=== PATIENT | male | born 1995 | race Caucasian/White ===

== ENCOUNTER 2017-01-04 10:41 | Emergency (ER) | payer OTHER, SELFPAY ==
--- NOTE | 2017-01-04 11:58 | EDDOCDS ---
Physician Documentation [facility] Name: Colt Tellez Age: 21 yrs Sex: Male : 1995 Arrival Date: 01/04/2017 Time: 10:41 Bed TR8 Private MD: NO PRIMARY PHYSICIAN, . Disposition: 01/04/17 11:51 Discharged to Home/Self Care. 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 - Condition is Stable. - Discharge Instructions: Herpes Labialis. - Prescriptions for Ibuprofen 800 mg Oral Tablet - take 1 tablet by ORAL route every 8 hours As needed take with food; 30 tablet. Valtrex 1 g Oral Tablet - take 2 tablet by ORAL route every 12 hours for 1 day; 4 tablet. Bactrim DS 800- 160 mg Oral Tablet - take 2 tablet by ORAL route every 12 hours for 7 days; 28 tablet. - Medication Reconciliation, Referral List Call for Appointment, Local Pharmacy Hours form. - [facility] ; When: 1 - 2 days; Reason: Recheck today's complaints, Continuance of care. Follow up: Emergency Department; Reason: Worsening of conditions. - Problem is new. - Symptoms have improved. Historical: - Allergies: No known drug Allergies; - Home Meds: 1. Bactrim DS 800-160 mg Oral tab 1 tab every 12 hours 2. ibuprofen 200 mg oral tab 2 tabs as needed (Last dose: 01/04/2017 07:00) - PMHx: ADHD; Sciatica; - PSHx: Tonsillectomy; Adenoidectomy; - Social history: Smoking status: Patient states was never smoker of tobacco. No barriers to communication noted, The patient speaks fluent Albanian. - Family history: Not pertinent. - : The pt / caregiver states he / she is not on anticoagulants. Home medication list is obtained from the patient, [employer] import data. - Exposure Risk Screening:: None identified. Vital Signs: 01/04 10:43 BP 137 / 70; Pulse 80; Resp 16; Temp 97.2(O); Pulse Ox 100% on R/A; Weight 121.56 kg / lr2 267.99 lbs (R); Height 6 ft. 2 in. (187.96 cm) (R); Pain 0/10; 10:43 Body Mass Index 34.41 (121.56 kg, 187.96 cm) lr2 MDM: 11:38 Financial registration complete. mm15 11:40 Viral Culture - Most Extremities Ordered. EDMS 11:45 [facility] Payment Agreement was scanned into [employer] and attached to record. mm15 Signatures: Dispatcher MedHost EDMS Kerry Mcadams RN RN [facility] Essie Zamora RN RN srm Stefanie Naranjo, JIM PARubina ef1 Amanda Tineo mm15 The chart was reviewed and I authenticate all verbal orders and agree with the evaluation and treatment provided.Corrections: (The following items were deleted from the chart) 11:46 11:39 Misc. Nursing Order ordered. ef1 srm Attachments: 11:45 [facility] Payment Agreement mm15 MTDD
--- NOTE | 2017-01-04 11:58 | EDDOCDS ---
Nurse's Notes [facility] Name: Colt Tellez Age: 21 yrs Sex: Male : 1995 Arrival Date: 01/04/2017 Time: 10:41 Bed TR8 Private MD: NO PRIMARY PHYSICIAN, . Diagnosis: Herpesviral [herpes simplex] infections-Bottom lip and tip of tongue;Local infection of the skin and subcutaneous tissue, unspecified Presentation: 01/04 10:47 Presenting complaint: Patient states: he is here for a refill of his antibiotic - has kcs been on the meds for awhile - diagnosed with cellulitis by Timothy Ruvalcaba in [place] and was told he may have to be on the antibiotic for over a month - did get better but has noticed it is coming back. Infection is in his mouth. Adult Sepsis Screening: The patient does not have new or worsening altered mentation. Patient's respiratory rate is less than 22. Systolic blood pressure is greater than 100. Patient has a qSOFA score of 0- Negative Sepsis Screen. Suicide/Homicide risk assessment- the patient denies having any suicidal and/or homicidal ideations and does not present with any other emotional, behavioral or mental health complaints. Status: Patient is not a card services specialist or dependent. Transition of care: patient was not received from another setting of care. 10:47 Acuity: ARIELLE Level 5 kcs 10:47 Method Of Arrival: Walkin/Carried/Asstd kcs Triage Assessment: 10:50 General: Appears comfortable, well developed, well nourished, well groomed, Behavior is kcs cooperative, pleasant. Pain: Denies pain. HIV screening NA for this visit Offered previously. Neurological: Level of Consciousness is awake, alert. Respiratory: Airway is patent Respiratory effort is even, unlabored, Respiratory pattern is regular, symmetrical. Derm: Skin is intact, is healthy with good turgor, Skin is dry, Skin is normal. Historical: - Allergies: No known drug Allergies; - Home Meds: 1. Bactrim DS 800-160 mg Oral tab 1 tab every 12 hours 2. ibuprofen 200 mg oral tab 2 tabs as needed (Last dose: 01/04/2017 07:00) - PMHx: ADHD; Sciatica; - PSHx: Tonsillectomy; Adenoidectomy; - Social history: Smoking status: Patient states was never smoker of tobacco. No barriers to communication noted, The patient speaks fluent Angolan. - Family history: Not pertinent. - : The pt / caregiver states he / she is not on anticoagulants. Home medication list is obtained from the patient, [employer] import data. - Exposure Risk Screening:: None identified. Screenin:48 Screening information is obtained from the patient. Fall risk: No risks identified. srm Assistance ADL's: requires no assistance with activities of daily living. Abuse/DV Screen: The patient / caregiver reports he/she is: not in a situation that causes fear, pain or injury. Nutritional screening: No deficits noted. Advance Directives: There is no active DNR order. home support is adequate. Assessment: 11:48 General: Appears in no apparent distress, Behavior is appropriate for age, cooperative. srm EENT: No deficits noted. Derm: pimple like area to mid lower lip. no driange noted at this time. Vital Signs: 10:43 BP 137 / 70; Pulse 80; Resp 16; Temp 97.2(O); Pulse Ox 100% on R/A; Weight 121.56 kg lr2 (R); Height 6 ft. 2 in. (187.96 cm) (R); Pain 0/10; 10:43 Body Mass Index 34.41 (121.56 kg, 187.96 cm) lr2 Vitals: 10:43 Log In Time: January 04, 2017 at 10:41. lr2 ED Course: 10:42 Patient visited by Keisha Weber. lr2 10:42 Patient moved to Waiting lr2 10:45 NO PRIMARY PHYSICIAN, . is Private Physician. lr2 10:45 Patient moved to Pre RCE lr2 10:49 Triage Initiated kcs 10:56 Patient moved to Triage 3 kcs 10:58 Stefanie Naranjo PA-C is PHCP. ef1 10:58 Maria Del Carmen King MD is Attending Physician. ef1 11:08 Patient visited by Stefanie Naranjo PA-C. ef1 11:43 Patient visited by Stefanie Naranjo PA-C. ef1 11:45 [facility] Payment Agreement was scanned into [employer] and attached to record. mm15 11:46 Viral Culture - Most Extremities Sent. srm 11:48 The patient / caregiver is instructed regarding the plan of care and ED course. Patient srm has correct armband on for positive identification. 11:49 Patient visited by Essie Zamora, RN. srm 11:51 [facility] is Referral Physician. ef1 11:56 Patient moved to TR8 ms18 11:56 No IV's were initiated during this patient's visit. No procedures done that require srm assistance. Order Results: There are currently no results for this order. Outcome: 11:51 Discharge ordered by Provider. ef1 11:56 Discharge Assessment: Patient awake, alert and oriented x 3. No cognitive and/or srm functional deficits noted. Patient verbalized understanding of disposition instructions. patient administered narcotics - no. The following High Risk Discharge criteria are identified: None. Discharged to home ambulatory. Condition: good Condition: stable. Discharge instructions given to patient, Instructed on discharge instructions, follow up and referral plans. medication usage, Demonstrated understanding of instructions, medications, Pt was receptive of discharge instructions/ teaching. Prescriptions given X 3. No special radiology studies were completed. Property sent home with patient. 11:57 Patient left the ED. srm Signatures: Kerry Mcadams RN RN [facility] Essie Zamora, RN RN [facility] Stefanie Naranjo, PA-C PA-C ef1 Amanda Tineo mm15 Evette Carmona RN RN ms18 Keisha Weber lr2 Corrections: (The following items were deleted from the chart) 10:45 10:43 Pulse 80bpm; Resp 16bpm; Pulse Ox 100% RA; Temp 97.2F Oral; 121.56 kg Reported; lr2 Height 6 ft. 2 in. Reported; BMI: 34.4; Pain 0/10; lr2 MTDD
--- NOTE | 2017-01-06 12:58 | EDDOCDS ---
Physician Documentation [facility] Name: Colt Tellez Age: 21 yrs Sex: Male : 1995 Arrival Date: 01/04/2017 Time: 10:41 Bed TR8 Private MD: NO PRIMARY PHYSICIAN, . Disposition: 01/04/17 11:51 Discharged to Home/Self Care. 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 - Condition is Stable. - Discharge Instructions: Herpes Labialis. - Prescriptions for Ibuprofen 800 mg Oral Tablet - take 1 tablet by ORAL route every 8 hours As needed take with food; 30 tablet. Valtrex 1 g Oral Tablet - take 2 tablet by ORAL route every 12 hours for 1 day; 4 tablet. Bactrim DS 800- 160 mg Oral Tablet - take 2 tablet by ORAL route every 12 hours for 7 days; 28 tablet. - Medication Reconciliation, Referral List Call for Appointment, Local Pharmacy Hours form. - [facility] ; When: 1 - 2 days; Reason: Recheck today's complaints, Continuance of care. Follow up: Emergency Department; Reason: Worsening of conditions. - Problem is new. - Symptoms have improved. Historical: - Allergies: No known drug Allergies; - Home Meds: 1. Bactrim DS 800-160 mg Oral tab 1 tab every 12 hours 2. ibuprofen 200 mg oral tab 2 tabs as needed (Last dose: 01/04/2017 07:00) - PMHx: ADHD; Sciatica; - PSHx: Tonsillectomy; Adenoidectomy; - Social history: Smoking status: Patient states was never smoker of tobacco. No barriers to communication noted, The patient speaks fluent Faroese. - Family history: Not pertinent. - : The pt / caregiver states he / she is not on anticoagulants. Home medication list is obtained from the patient, [employer] import data. - Exposure Risk Screening:: None identified. Vital Signs: 01/04 10:43 BP 137 / 70; Pulse 80; Resp 16; Temp 97.2(O); Pulse Ox 100% on R/A; Weight 121.56 kg / lr2 267.99 lbs (R); Height 6 ft. 2 in. (187.96 cm) (R); Pain 0/10; 10:43 Body Mass Index 34.41 (121.56 kg, 187.96 cm) lr2 MDM: 11:38 Financial registration complete. mm15 11:40 Viral Culture - Most Extremities Ordered. EDMS 11:45 [facility] Payment Agreement was scanned into [employer] and attached to record. mm15 13:30 T-Sheet-- Draft Copy was scanned into [employer] and attached to record. gb Signatures: Dispatcher Med[employer] Kerry Gross RN RN [facility] Essie Zamora RN RN srm Edith Dobbins, Reg Reg gb Stefanie Naranjo, PA-C PA-C ef1 Amanda Tineo mm15 The chart was reviewed and I authenticate all verbal orders and agree with the evaluation and treatment provided.Corrections: (The following items were deleted from the chart) 11:46 11:39 Misc. Nursing Order ordered. ef1 srm Attachments: 11:45 [facility] Payment Agreement mm15 13:30 T-Sheet-- Draft Copy gb Chart Complete MTDD
--- NOTE | 2017-01-06 12:58 | EDDOCDS ---
Nurse's Notes [facility] Name: Colt Tellez Age: 21 yrs Sex: Male : 1995 Arrival Date: 01/04/2017 Time: 10:41 Bed TR8 Private MD: NO PRIMARY PHYSICIAN, . Diagnosis: Herpesviral [herpes simplex] infections-Bottom lip and tip of tongue;Local infection of the skin and subcutaneous tissue, unspecified Presentation: 01/04 10:47 Presenting complaint: Patient states: he is here for a refill of his antibiotic - has kcs been on the meds for awhile - diagnosed with cellulitis by Timothy Ruvalcaba in [place] and was told he may have to be on the antibiotic for over a month - did get better but has noticed it is coming back. Infection is in his mouth. Adult Sepsis Screening: The patient does not have new or worsening altered mentation. Patient's respiratory rate is less than 22. Systolic blood pressure is greater than 100. Patient has a qSOFA score of 0- Negative Sepsis Screen. Suicide/Homicide risk assessment- the patient denies having any suicidal and/or homicidal ideations and does not present with any other emotional, behavioral or mental health complaints. Status: Patient is not a fire sprinkler service technician or dependent. Transition of care: patient was not received from another setting of care. 10:47 Acuity: ARIELLE Level 5 kcs 10:47 Method Of Arrival: Walkin/Carried/Asstd kcs Triage Assessment: 10:50 General: Appears comfortable, well developed, well nourished, well groomed, Behavior is kcs cooperative, pleasant. Pain: Denies pain. HIV screening NA for this visit Offered previously. Neurological: Level of Consciousness is awake, alert. Respiratory: Airway is patent Respiratory effort is even, unlabored, Respiratory pattern is regular, symmetrical. Derm: Skin is intact, is healthy with good turgor, Skin is dry, Skin is normal. Historical: - Allergies: No known drug Allergies; - Home Meds: 1. Bactrim DS 800-160 mg Oral tab 1 tab every 12 hours 2. ibuprofen 200 mg oral tab 2 tabs as needed (Last dose: 01/04/2017 07:00) - PMHx: ADHD; Sciatica; - PSHx: Tonsillectomy; Adenoidectomy; - Social history: Smoking status: Patient states was never smoker of tobacco. No barriers to communication noted, The patient speaks fluent Panamanian. - Family history: Not pertinent. - : The pt / caregiver states he / she is not on anticoagulants. Home medication list is obtained from the patient, [employer] import data. - Exposure Risk Screening:: None identified. Screenin:48 Screening information is obtained from the patient. Fall risk: No risks identified. srm Assistance ADL's: requires no assistance with activities of daily living. Abuse/DV Screen: The patient / caregiver reports he/she is: not in a situation that causes fear, pain or injury. Nutritional screening: No deficits noted. Advance Directives: There is no active DNR order. home support is adequate. Assessment: 11:48 General: Appears in no apparent distress, Behavior is appropriate for age, cooperative. srm EENT: No deficits noted. Derm: pimple like area to mid lower lip. no driange noted at this time. Vital Signs: 10:43 BP 137 / 70; Pulse 80; Resp 16; Temp 97.2(O); Pulse Ox 100% on R/A; Weight 121.56 kg lr2 (R); Height 6 ft. 2 in. (187.96 cm) (R); Pain 0/10; 10:43 Body Mass Index 34.41 (121.56 kg, 187.96 cm) lr2 Vitals: 10:43 Log In Time: January 04, 2017 at 10:41. lr2 ED Course: 10:42 Patient visited by Keisha Weber. lr2 10:42 Patient moved to Waiting lr2 10:45 NO PRIMARY PHYSICIAN, . is Private Physician. lr2 10:45 Patient moved to Pre RCE lr2 10:49 Triage Initiated kcs 10:56 Patient moved to Triage 3 kcs 10:58 Stefanie Naranjo PA-C is PHCP. ef1 10:58 Maria Del Carmen King MD is Attending Physician. ef1 11:08 Patient visited by Stefanie Naranjo PA-C. ef1 11:43 Patient visited by Stefanie Naranjo PA-C. ef1 11:45 COUNTS INCLUDE 234 BEDS AT THE [facility] Payment Agreement was scanned into [employer] and attached to record. mm15 11:46 Viral Culture - Most Extremities Sent. srm 11:48 The patient / caregiver is instructed regarding the plan of care and ED course. Patient srm has correct armband on for positive identification. 11:49 Patient visited by Essie Zamora, RN. srm 11:51 [facility] is Referral Physician. ef1 11:56 Patient moved to TR8 ms18 11:56 No IV's were initiated during this patient's visit. No procedures done that require srm assistance. 13:30 T-Sheet-- Draft Copy was scanned into [employer] and attached to record. gb Order Results: There are currently no results for this order. Outcome: 11:51 Discharge ordered by Provider. ef1 11:56 Discharge Assessment: Patient awake, alert and oriented x 3. No cognitive and/or srm functional deficits noted. Patient verbalized understanding of disposition instructions. patient administered narcotics - no. The following High Risk Discharge criteria are identified: None. Discharged to home ambulatory. Condition: good Condition: stable. Discharge instructions given to patient, Instructed on discharge instructions, follow up and referral plans. medication usage, Demonstrated understanding of instructions, medications, Pt was receptive of discharge instructions/ teaching. Prescriptions given X 3. No special radiology studies were completed. Property sent home with patient. 11:57 Patient left the ED. srm Signatures: Kerry Mcadams, RN RN [facility] Essie Zamora, RN RN [facility] Edith Dobbins, Reg Reg Stefanie Samuels, PA-C PA-C ef1 Amanda Tineo mm15 Evette Carmona,CARMELLA RN ms18 Keisha Weber lr2 Corrections: (The following items were deleted from the chart) 10:45 10:43 Pulse 80bpm; Resp 16bpm; Pulse Ox 100% RA; Temp 97.2F Oral; 121.56 kg Reported; lr2 Height 6 ft. 2 in. Reported; BMI: 34.4; Pain 0/10; lr2 Chart Complete MTDD
--- NOTE | 2017-01-06 12:58 | EDDOCDS ---
Physician Documentation [facility] Name: Colt Tellez Age: 21 yrs Sex: Male : 1995 Arrival Date: 01/04/2017 Time: 10:41 Bed TR8 Private MD: NO PRIMARY PHYSICIAN, . Disposition: 01/04/17 11:51 Discharged to Home/Self Care. 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 - Condition is Stable. - Discharge Instructions: Herpes Labialis. - Prescriptions for Ibuprofen 800 mg Oral Tablet - take 1 tablet by ORAL route every 8 hours As needed take with food; 30 tablet. Valtrex 1 g Oral Tablet - take 2 tablet by ORAL route every 12 hours for 1 day; 4 tablet. Bactrim DS 800- 160 mg Oral Tablet - take 2 tablet by ORAL route every 12 hours for 7 days; 28 tablet. - Medication Reconciliation, Referral List Call for Appointment, Local Pharmacy Hours form. - [facility] ; When: 1 - 2 days; Reason: Recheck today's complaints, Continuance of care. Follow up: Emergency Department; Reason: Worsening of conditions. - Problem is new. - Symptoms have improved. Historical: - Allergies: No known drug Allergies; - Home Meds: 1. Bactrim DS 800-160 mg Oral tab 1 tab every 12 hours 2. ibuprofen 200 mg oral tab 2 tabs as needed (Last dose: 01/04/2017 07:00) - PMHx: ADHD; Sciatica; - PSHx: Tonsillectomy; Adenoidectomy; - Social history: Smoking status: Patient states was never smoker of tobacco. No barriers to communication noted, The patient speaks fluent Urdu. - Family history: Not pertinent. - : The pt / caregiver states he / she is not on anticoagulants. Home medication list is obtained from the patient, [employer] import data. - Exposure Risk Screening:: None identified. Vital Signs: 01/04 10:43 BP 137 / 70; Pulse 80; Resp 16; Temp 97.2(O); Pulse Ox 100% on R/A; Weight 121.56 kg / lr2 267.99 lbs (R); Height 6 ft. 2 in. (187.96 cm) (R); Pain 0/10; 10:43 Body Mass Index 34.41 (121.56 kg, 187.96 cm) lr2 MDM: 11:38 Financial registration complete. mm15 11:40 Viral Culture - Most Extremities Ordered. EDMS 11:45 [facility] Payment Agreement was scanned into [employer] and attached to record. mm15 13:30 T-Sheet-- Draft Copy was scanned into [employer] and attached to record. gb Signatures: Dispatcher Med[employer] Kerry Gross RN RN [facility] Essie Zamora RN RN srm Edith Dobbins, Reg Reg gb Stefanie Naranjo, PA-C PA-C ef1 Amanda Tineo mm15 The chart was reviewed and I authenticate all verbal orders and agree with the evaluation and treatment provided.Corrections: (The following items were deleted from the chart) 11:46 11:39 Misc. Nursing Order ordered. ef1 srm Attachments: 11:45 [facility] Payment Agreement mm15 13:30 T-Sheet-- Draft Copy gb Chart Complete MTDD
--- NOTE | 2017-01-13 10:24 | EDDOCDS ---
Physician Documentation [facility] Name: Colt Tellez Age: 21 yrs Sex: Male : 1995 Arrival Date: 01/04/2017 Time: 10:41 Bed TR8 Private MD: NO PRIMARY PHYSICIAN, . Disposition: 01/04/17 11:51 Discharged to Home/Self Care. 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 - Condition is Stable. - Discharge Instructions: Herpes Labialis. - Prescriptions for Ibuprofen 800 mg Oral Tablet - take 1 tablet by ORAL route every 8 hours As needed take with food; 30 tablet. Valtrex 1 g Oral Tablet - take 2 tablet by ORAL route every 12 hours for 1 day; 4 tablet. Bactrim DS 800- 160 mg Oral Tablet - take 2 tablet by ORAL route every 12 hours for 7 days; 28 tablet. - Medication Reconciliation, Referral List Call for Appointment, Local Pharmacy Hours form. - Follow up: [facility] ; When: 1 - 2 days; Reason: Recheck today's complaints, Continuance of care. Follow up: Emergency Department; Reason: Worsening of conditions. - Problem is new. - Symptoms have improved. Historical: - Allergies: No known drug Allergies; - Home Meds: 1. Bactrim DS 800-160 mg Oral tab 1 tab every 12 hours 2. ibuprofen 200 mg oral tab 2 tabs as needed (Last dose: 01/04/2017 07:00) - PMHx: ADHD; Sciatica; - PSHx: Tonsillectomy; Adenoidectomy; - Social history: Smoking status: Patient states was never smoker of tobacco. No barriers to communication noted, The patient speaks fluent Romansh. - Family history: Not pertinent. - : The pt / caregiver states he / she is not on anticoagulants. Home medication list is obtained from the patient, [employer] import data. - Exposure Risk Screening:: None identified. Vital Signs: 01/04 10:43 BP 137 / 70; Pulse 80; Resp 16; Temp 97.2(O); Pulse Ox 100% on R/A; Weight 121.56 kg / lr2 267.99 lbs (R); Height 6 ft. 2 in. (187.96 cm) (R); Pain 0/10; 10:43 Body Mass Index 34.41 (121.56 kg, 187.96 cm) lr2 MDM: 11:38 Financial registration complete. mm15 11:40 Viral Culture - Most Extremities Ordered. EDMS 11:45 [facility] Payment Agreement was scanned into [employer] and attached to record. mm15 13:30 T-Sheet-- Draft Copy was scanned into [employer] and attached to record. gb Signatures: Dispatcher [employer] Kerry Gross RN RN [facility] Essie Zamora RN RN srm Edith Dobbins, Reg Reg gb Stefanie Naranjo, PA-C PA-C ef1 Amanda Tineo mm15 The chart was reviewed and I authenticate all verbal orders and agree with the evaluation and treatment provided.Corrections: (The following items were deleted from the chart) 11:46 11:39 Misc. Nursing Order ordered. ef1 srm Attachments: 11:45 [facility] Payment Agreement mm15 13:30 T-Sheet-- Draft Copy gb MTDD
--- NOTE | 2017-01-13 10:24 | EDDOCDS ---
Nurse's Notes [facility] Name: Colt Tellez Age: 21 yrs Sex: Male : 1995 Arrival Date: 01/04/2017 Time: 10:41 Bed TR8 Private MD: NO PRIMARY PHYSICIAN, . 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 Infection is in his mouth. Adult Sepsis Screening: The patient does not have new or worsening altered mentation. Patient's respiratory rate is less than 22. Systolic blood pressure is greater than 100. Patient has a qSOFA score of 0- Negative Sepsis Screen. Suicide/Homicide risk assessment- the patient denies having any suicidal and/or homicidal ideations and does not present with any other emotional, behavioral or mental health complaints. Status: Patient is not a service car driver or dependent. Transition of care: patient was not received from another setting of care. 10:47 Acuity: ARIELLE Level 5 kcs 10:47 Method Of Arrival: Walkin/Carried/Asstd kcs Triage Assessment: 10:50 General: Appears comfortable, well developed, well nourished, well groomed, Behavior is kcs cooperative, pleasant. Pain: Denies pain. HIV screening NA for this visit Offered previously. Neurological: Level of Consciousness is awake, alert. Respiratory: Airway is patent Respiratory effort is even, unlabored, Respiratory pattern is regular, symmetrical. Derm: Skin is intact, is healthy with good turgor, Skin is dry, Skin is normal. Historical: - Allergies: No known drug Allergies; - Home Meds: 1. Bactrim DS 800-160 mg Oral tab 1 tab every 12 hours 2. ibuprofen 200 mg oral tab 2 tabs as needed (Last dose: 01/04/2017 07:00) - PMHx: ADHD; Sciatica; - PSHx: Tonsillectomy; Adenoidectomy; - Social history: Smoking status: Patient states was never smoker of tobacco. No barriers to communication noted, The patient speaks fluent Panamanian. - Family history: Not pertinent. - : The pt / caregiver states he / she is not on anticoagulants. Home medication list is obtained from the patient, [employer] import data. - Exposure Risk Screening:: None identified. Screenin:48 Screening information is obtained from the patient. Fall risk: No risks identified. srm Assistance ADL's: requires no assistance with activities of daily living. Abuse/DV Screen: The patient / caregiver reports he/she is: not in a situation that causes fear, pain or injury. Nutritional screening: No deficits noted. Advance Directives: There is no active DNR order. home support is adequate. Assessment: 11:48 General: Appears in no apparent distress, Behavior is appropriate for age, cooperative. srm EENT: No deficits noted. Derm: pimple like area to mid lower lip. no driange noted at this time. Vital Signs: 10:43 BP 137 / 70; Pulse 80; Resp 16; Temp 97.2(O); Pulse Ox 100% on R/A; Weight 121.56 kg lr2 (R); Height 6 ft. 2 in. (187.96 cm) (R); Pain 0/10; 10:43 Body Mass Index 34.41 (121.56 kg, 187.96 cm) lr2 Vitals: 10:43 Log In Time: January 04, 2017 at 10:41. lr2 ED Course: 10:42 Patient visited by Keisha Weber. lr2 10:42 Patient moved to Waiting lr2 10:45 NO PRIMARY PHYSICIAN, . is Private Physician. lr2 10:45 Patient moved to Pre RCE lr2 10:49 Triage Initiated kcs 10:56 Patient moved to Triage 3 kcs 10:58 Stefanie Naranjo PA-C is PHCP. ef1 10:58 Maria Del Carmen King MD is Attending Physician. ef1 11:08 Patient visited by Stefanie Naranjo PA-C. ef1 11:43 Patient visited by Stefanie Naranjo PA-C. ef1 11:45 [facility] Payment Agreement was scanned into [employer] and attached to record. mm15 11:46 Viral Culture - Most Extremities Sent. srm 11:48 The patient / caregiver is instructed regarding the plan of care and ED course. Patient srm has correct armband on for positive identification. 11:49 Patient visited by Essie Zamora, RN. [facility] 11:51 [facility] is Referral Physician. ef1 11:56 Patient moved to TR8 ms18 11:56 No IV's were initiated during this patient's visit. No procedures done that require srm assistance. 13:30 T-Sheet-- Draft Copy was scanned into [employer] and attached to record. gb Order Results: Lab Order: Viral Culture - Most Extremities; SPEC'M 01/04/17 11:47 Test: VIRAL CULTURE; Value: VIRAL CULTURE Positive for Herpes Simplex Virus Type 2; Abnormal: Abnormal; Status: F Test: VIRAL CULTURE; Value: Comments:; Status: F Test Note: ; Testing performed at reference lab . Report copy to follow on a separate form. 01/12/17 REF LAB#:[id number] Outcome: 11:51 Discharge ordered by Provider. ef1 11:56 Discharge Assessment: Patient awake, alert and oriented x 3. No cognitive and/or srm functional deficits noted. Patient verbalized understanding of disposition instructions. patient administered narcotics - no. The following High Risk Discharge criteria are identified: None. Discharged to home ambulatory. Condition: good Condition: stable. Discharge instructions given to patient, Instructed on discharge instructions, follow up and referral plans. medication usage, Demonstrated understanding of instructions, medications, Pt was receptive of discharge instructions/ teaching. Prescriptions given X 3. No special radiology studies were completed. Property sent home with patient. 11:57 Patient left the ED. [facility] Addendum: 01/13/2017 10:22 Narrative: Viral culture results reviewed with Dr. Meyer and she reports patient and kcs provider aware. Signatures: Kerry Mcadams RN RN kcs Essie Zamora, RN RN srm Edith Dobbins, Reg Reg gb Stefanie Naranjo, PADuniaC PA-C ef1 Amanda Tineo mm15 Evette Carmona RN RN ms18 Keisha Weber lr2 Corrections: (The following items were deleted from the chart) 01/04 10:45 10:43 Pulse 80bpm; Resp 16bpm; Pulse Ox 100% RA; Temp 97.2F Oral; 121.56 kg Reported; lr2 Height 6 ft. 2 in. Reported; BMI: 34.4; Pain 0/10; lr2 MTDD
--- NOTE | 2017-01-13 10:24 | EDDOCDS ---
Physician Documentation [facility] Name: Colt Tellez Age: 21 yrs Sex: Male : 1995 Arrival Date: 01/04/2017 Time: 10:41 Bed TR8 Private MD: NO PRIMARY PHYSICIAN, . Disposition: 01/04/17 11:51 Discharged to Home/Self Care. 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 - Condition is Stable. - Discharge Instructions: Herpes Labialis. - Prescriptions for Ibuprofen 800 mg Oral Tablet - take 1 tablet by ORAL route every 8 hours As needed take with food; 30 tablet. Valtrex 1 g Oral Tablet - take 2 tablet by ORAL route every 12 hours for 1 day; 4 tablet. Bactrim DS 800- 160 mg Oral Tablet - take 2 tablet by ORAL route every 12 hours for 7 days; 28 tablet. - Medication Reconciliation, Referral List Call for Appointment, Local Pharmacy Hours form. - [facility] ; When: 1 - 2 days; Reason: Recheck today's complaints, Continuance of care. Follow up: Emergency Department; Reason: Worsening of conditions. - Problem is new. - Symptoms have improved. Historical: - Allergies: No known drug Allergies; - Home Meds: 1. Bactrim DS 800-160 mg Oral tab 1 tab every 12 hours 2. ibuprofen 200 mg oral tab 2 tabs as needed (Last dose: 01/04/2017 07:00) - PMHx: ADHD; Sciatica; - PSHx: Tonsillectomy; Adenoidectomy; - Social history: Smoking status: Patient states was never smoker of tobacco. No barriers to communication noted, The patient speaks fluent Faroese. - Family history: Not pertinent. - : The pt / caregiver states he / she is not on anticoagulants. Home medication list is obtained from the patient, [employer] import data. - Exposure Risk Screening:: None identified. Vital Signs: 01/04 10:43 BP 137 / 70; Pulse 80; Resp 16; Temp 97.2(O); Pulse Ox 100% on R/A; Weight 121.56 kg / lr2 267.99 lbs (R); Height 6 ft. 2 in. (187.96 cm) (R); Pain 0/10; 10:43 Body Mass Index 34.41 (121.56 kg, 187.96 cm) lr2 MDM: 11:38 Financial registration complete. mm15 11:40 Viral Culture - Most Extremities Ordered. EDMS 11:45 [facility] Payment Agreement was scanned into [employer] and attached to record. mm15 13:30 T-Sheet-- Draft Copy was scanned into [employer] and attached to record. gb Signatures: Dispatcher [employer] Kerry Gross RN RN [facility] Essie Zamora RN RN srm Edith Dobbins, Reg Reg gb Stefanie Naranjo, PA-C PA-C ef1 Amanda Tineo mm15 The chart was reviewed and I authenticate all verbal orders and agree with the evaluation and treatment provided.Corrections: (The following items were deleted from the chart) 11:46 11:39 Misc. Nursing Order ordered. ef1 srm Attachments: 11:45 [facility] Payment Agreement mm15 13:30 T-Sheet-- Draft Copy gb MTDD
--- NOTE | 2017-01-13 10:26 | EDDOCDS ---
Physician Documentation [facility] Name: Colt Tellez Age: 21 yrs Sex: Male : 1995 Arrival Date: 01/04/2017 Time: 10:41 Bed TR8 Private MD: NO PRIMARY PHYSICIAN, . Disposition: 01/04/17 11:51 Discharged to Home/Self Care. 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 - Condition is Stable. - Discharge Instructions: Herpes Labialis. - Prescriptions for Ibuprofen 800 mg Oral Tablet - take 1 tablet by ORAL route every 8 hours As needed take with food; 30 tablet. Valtrex 1 g Oral Tablet - take 2 tablet by ORAL route every 12 hours for 1 day; 4 tablet. Bactrim DS 800- 160 mg Oral Tablet - take 2 tablet by ORAL route every 12 hours for 7 days; 28 tablet. - Medication Reconciliation, Referral List Call for Appointment, Local Pharmacy Hours form. - [facility] ; When: 1 - 2 days; Reason: Recheck today's complaints, Continuance of care. Follow up: Emergency Department; Reason: Worsening of conditions. - Problem is new. - Symptoms have improved. Historical: - Allergies: No known drug Allergies; - Home Meds: 1. Bactrim DS 800-160 mg Oral tab 1 tab every 12 hours 2. ibuprofen 200 mg oral tab 2 tabs as needed (Last dose: 01/04/2017 07:00) - PMHx: ADHD; Sciatica; - PSHx: Tonsillectomy; Adenoidectomy; - Social history: Smoking status: Patient states was never smoker of tobacco. No barriers to communication noted, The patient speaks fluent Indonesian. - Family history: Not pertinent. - : The pt / caregiver states he / she is not on anticoagulants. Home medication list is obtained from the patient, [employer] import data. - Exposure Risk Screening:: None identified. Vital Signs: 01/04 10:43 BP 137 / 70; Pulse 80; Resp 16; Temp 97.2(O); Pulse Ox 100% on R/A; Weight 121.56 kg / lr2 267.99 lbs (R); Height 6 ft. 2 in. (187.96 cm) (R); Pain 0/10; 10:43 Body Mass Index 34.41 (121.56 kg, 187.96 cm) lr2 MDM: 11:38 Financial registration complete. mm15 11:40 Viral Culture - Most Extremities Ordered. EDMS 11:45 [facility] Payment Agreement was scanned into [employer] and attached to record. mm15 13:30 T-Sheet-- Draft Copy was scanned into [employer] and attached to record. gb Signatures: Dispatcher [employer] Kerry Gross RN RN [facility] Essie Zamora RN RN srm dEith Dobbins, Reg Reg gb Stefanie Naranjo, PA-C PA-C ef1 Amanda Tineo mm15 The chart was reviewed and I authenticate all verbal orders and agree with the evaluation and treatment provided.Corrections: (The following items were deleted from the chart) 11:46 11:39 Misc. Nursing Order ordered. ef1 srm Attachments: 11:45 [facility] Payment Agreement mm15 13:30 T-Sheet-- Draft Copy gb Chart Complete MTDD
--- NOTE | 2017-01-13 10:26 | EDDOCDS ---
Nurse's Notes [facility] Name: Colt Tellez Age: 21 yrs Sex: Male : 1995 Arrival Date: 01/04/2017 Time: 10:41 Bed TR8 Private MD: NO PRIMARY PHYSICIAN, . Diagnosis: Herpesviral [herpes simplex] infections-Bottom lip and tip of tongue;Local infection of the skin and subcutaneous tissue, unspecified Presentation: 01/04 10:47 Presenting complaint: Patient states: he is here for a refill of his antibiotic - has kcs been on the meds for awhile - diagnosed with cellulitis by Timothy Ruvalcaba in [place] and was told he may have to be on the antibiotic for over a month - did get better but has noticed it is coming back. Infection is in his mouth. Adult Sepsis Screening: The patient does not have new or worsening altered mentation. Patient's respiratory rate is less than 22. Systolic blood pressure is greater than 100. Patient has a qSOFA score of 0- Negative Sepsis Screen. Suicide/Homicide risk assessment- the patient denies having any suicidal and/or homicidal ideations and does not present with any other emotional, behavioral or mental health complaints. 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 Transition of care: patient was not received from another setting of care. 10:47 Acuity: ARIELLE Level 5 kcs 10:47 Method Of Arrival: Walkin/Carried/Asstd kcs Triage Assessment: 10:50 General: Appears comfortable, well developed, well nourished, well groomed, Behavior is kcs cooperative, pleasant. Pain: Denies pain. HIV screening NA for this visit Offered previously. Neurological: Level of Consciousness is awake, alert. Respiratory: Airway is patent Respiratory effort is even, unlabored, Respiratory pattern is regular, symmetrical. Derm: Skin is intact, is healthy with good turgor, Skin is dry, Skin is normal. Historical: - Allergies: No known drug Allergies; - Home Meds: 1. Bactrim DS 800-160 mg Oral tab 1 tab every 12 hours 2. ibuprofen 200 mg oral tab 2 tabs as needed (Last dose: 01/04/2017 07:00) - PMHx: ADHD; Sciatica; - PSHx: Tonsillectomy; Adenoidectomy; - Social history: Smoking status: Patient states was never smoker of tobacco. No barriers to communication noted, The patient speaks fluent Icelandic. - Family history: Not pertinent. - : The pt / caregiver states he / she is not on anticoagulants. Home medication list is obtained from the patient, [employer] import data. - Exposure Risk Screening:: None identified. Screenin:48 Screening information is obtained from the patient. Fall risk: No risks identified. srm Assistance ADL's: requires no assistance with activities of daily living. Abuse/DV Screen: The patient / caregiver reports he/she is: not in a situation that causes fear, pain or injury. Nutritional screening: No deficits noted. Advance Directives: There is no active DNR order. home support is adequate. Assessment: 11:48 General: Appears in no apparent distress, Behavior is appropriate for age, cooperative. srm EENT: No deficits noted. Derm: pimple like area to mid lower lip. no driange noted at this time. Vital Signs: 10:43 BP 137 / 70; Pulse 80; Resp 16; Temp 97.2(O); Pulse Ox 100% on R/A; Weight 121.56 kg lr2 (R); Height 6 ft. 2 in. (187.96 cm) (R); Pain 0/10; 10:43 Body Mass Index 34.41 (121.56 kg, 187.96 cm) lr2 Vitals: 10:43 Log In Time: January 04, 2017 at 10:41. lr2 ED Course: 10:42 Patient visited by Keisha Weber. lr2 10:42 Patient moved to Waiting lr2 10:45 NO PRIMARY PHYSICIAN, . is Private Physician. lr2 10:45 Patient moved to Pre RCE lr2 10:49 Triage Initiated kcs 10:56 Patient moved to Triage 3 kcs 10:58 Stefanie Naranjo PA-C is PHCP. ef1 10:58 Maria Del Carmen King MD is Attending Physician. ef1 11:08 Patient visited by Stefanie Naranjo PA-C. ef1 11:43 Patient visited by Stefanie Naranjo PA-C. ef1 11:45 [facility] Payment Agreement was scanned into [email or web address] and attached to record. mm15 11:46 Viral Culture - Most Extremities Sent. srm 11:48 The patient / caregiver is instructed regarding the plan of care and ED course. Patient srm has correct armband on for positive identification. 11:49 Patient visited by Essie Zamora, RN. [facility] 11:51 [facility] is Referral Physician. ef1 11:56 Patient moved to TR8 ms18 11:56 No IV's were initiated during this patient's visit. No procedures done that require srm assistance. 13:30 T-Sheet-- Draft Copy was scanned into [email or web address] and attached to record. gb Order Results: Lab Order: Viral Culture - Most Extremities; SPEC'M 01/04/17 11:47 Test: VIRAL CULTURE; Value: VIRAL CULTURE Positive for Herpes Simplex Virus Type 2; Abnormal: Abnormal; Status: F Test: VIRAL CULTURE; Value: Comments:; Status: F Test Note: ; Testing performed at reference lab . Report copy to follow on a separate form. 01/12/17 REF LAB#:[id number] Outcome: 11:51 Discharge ordered by Provider. ef1 11:56 Discharge Assessment: Patient awake, alert and oriented x 3. No cognitive and/or srm functional deficits noted. Patient verbalized understanding of disposition instructions. patient administered narcotics - no. The following High Risk Discharge criteria are identified: None. Discharged to home ambulatory. Condition: good Condition: stable. Discharge instructions given to patient, Instructed on discharge instructions, follow up and referral plans. medication usage, Demonstrated understanding of instructions, medications, Pt was receptive of discharge instructions/ teaching. Prescriptions given X 3. No special radiology studies were completed. Property sent home with patient. 11:57 Patient left the ED. [facility] Addendum: 01/13/2017 10:22 Narrative: Viral culture results reviewed with Dr. Meyer and she reports patient and kcs provider aware. Signatures: Kerry Mcadams RN RN kcs Essie Zamora, RN RN srm Edith Dobbins, Reg Reg gb Stefanie Naranjo, PADuniaC PA-C ef1 Amanda Tineo mm15 Evette Carmona RN RN ms18 Keisha Weber lr2 Corrections: (The following items were deleted from the chart) 01/04 10:45 10:43 Pulse 80bpm; Resp 16bpm; Pulse Ox 100% RA; Temp 97.2F Oral; 121.56 kg Reported; lr2 Height 6 ft. 2 in. Reported; BMI: 34.4; Pain 0/10; lr2 Chart Complete MTDD
--- NOTE | 2017-01-13 10:26 | EDDOCDS ---
Physician Documentation [facility] Name: Colt Tellez Age: 21 yrs Sex: Male : 1995 Arrival Date: 01/04/2017 Time: 10:41 Bed TR8 Private MD: NO PRIMARY PHYSICIAN, . Disposition: 01/04/17 11:51 Discharged to Home/Self Care. 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 - Condition is Stable. - Discharge Instructions: Herpes Labialis. - Prescriptions for Ibuprofen 800 mg Oral Tablet - take 1 tablet by ORAL route every 8 hours As needed take with food; 30 tablet. Valtrex 1 g Oral Tablet - take 2 tablet by ORAL route every 12 hours for 1 day; 4 tablet. Bactrim DS 800- 160 mg Oral Tablet - take 2 tablet by ORAL route every 12 hours for 7 days; 28 tablet. - Medication Reconciliation, Referral List Call for Appointment, Local Pharmacy Hours form. - [facility] ; When: 1 - 2 days; Reason: Recheck today's complaints, Continuance of care. Follow up: Emergency Department; Reason: Worsening of conditions. - Problem is new. - Symptoms have improved. Historical: - Allergies: No known drug Allergies; - Home Meds: 1. Bactrim DS 800-160 mg Oral tab 1 tab every 12 hours 2. ibuprofen 200 mg oral tab 2 tabs as needed (Last dose: 01/04/2017 07:00) - PMHx: ADHD; Sciatica; - PSHx: Tonsillectomy; Adenoidectomy; - Social history: Smoking status: Patient states was never smoker of tobacco. No barriers to communication noted, The patient speaks fluent Tajik. - Family history: Not pertinent. - : The pt / caregiver states he / she is not on anticoagulants. Home medication list is obtained from the patient, [employer] import data. - Exposure Risk Screening:: None identified. Vital Signs: 01/04 10:43 BP 137 / 70; Pulse 80; Resp 16; Temp 97.2(O); Pulse Ox 100% on R/A; Weight 121.56 kg / lr2 267.99 lbs (R); Height 6 ft. 2 in. (187.96 cm) (R); Pain 0/10; 10:43 Body Mass Index 34.41 (121.56 kg, 187.96 cm) lr2 MDM: 11:38 Financial registration complete. mm15 11:40 Viral Culture - Most Extremities Ordered. EDMS 11:45 [facility] Payment Agreement was scanned into [id number] and attached to record. mm15 13:30 T-Sheet-- Draft Copy was scanned into [email or web address] and attached to record. gb Signatures: Dispatcher [employer] Kerry Gross RN RN [facility] Essie Zamora RN RN srm Edith Dobbins, Reg Reg gb Stefanie Naranjo, PA-C PA-C ef1 Amanda Tineo mm15 The chart was reviewed and I authenticate all verbal orders and agree with the evaluation and treatment provided.Corrections: (The following items were deleted from the chart) 11:46 11:39 Misc. Nursing Order ordered. ef1 srm Attachments: 11:45 [facility] Payment Agreement mm15 13:30 T-Sheet-- Draft Copy gb Chart Complete MTDD
--- NOTE | 2017-01-13 10:27 | EDDOCDS ---
Nurse's Notes [facility] Name: Colt Tellez Age: 21 yrs Sex: Male : 1995 Arrival Date: 01/04/2017 Time: 10:41 Bed TR8 Private MD: NO PRIMARY PHYSICIAN, . 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 Infection is in his mouth. Adult Sepsis Screening: The patient does not have new or worsening altered mentation. Patient's respiratory rate is less than 22. Systolic blood pressure is greater than 100. Patient has a qSOFA score of 0- Negative Sepsis Screen. Suicide/Homicide risk assessment- the patient denies having any suicidal and/or homicidal ideations and does not present with any other emotional, behavioral or mental health complaints. 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 Transition of care: patient was not received from another setting of care. 10:47 Acuity: ARIELLE Level 5 kcs 10:47 Method Of Arrival: Walkin/Carried/Asstd kcs Triage Assessment: 10:50 General: Appears comfortable, well developed, well nourished, well groomed, Behavior is kcs cooperative, pleasant. Pain: Denies pain. HIV screening NA for this visit Offered previously. Neurological: Level of Consciousness is awake, alert. Respiratory: Airway is patent Respiratory effort is even, unlabored, Respiratory pattern is regular, symmetrical. Derm: Skin is intact, is healthy with good turgor, Skin is dry, Skin is normal. Historical: - Allergies: No known drug Allergies; - Home Meds: 1. Bactrim DS 800-160 mg Oral tab 1 tab every 12 hours 2. ibuprofen 200 mg oral tab 2 tabs as needed (Last dose: 01/04/2017 07:00) - PMHx: ADHD; Sciatica; - PSHx: Tonsillectomy; Adenoidectomy; - Social history: Smoking status: Patient states was never smoker of tobacco. No barriers to communication noted, The patient speaks fluent Welsh. - Family history: Not pertinent. - : The pt / caregiver states he / she is not on anticoagulants. Home medication list is obtained from the patient, [employer] import data. - Exposure Risk Screening:: None identified. Screenin:48 Screening information is obtained from the patient. Fall risk: No risks identified. srm Assistance ADL's: requires no assistance with activities of daily living. Abuse/DV Screen: The patient / caregiver reports he/she is: not in a situation that causes fear, pain or injury. Nutritional screening: No deficits noted. Advance Directives: There is no active DNR order. home support is adequate. Assessment: 11:48 General: Appears in no apparent distress, Behavior is appropriate for age, cooperative. srm EENT: No deficits noted. Derm: pimple like area to mid lower lip. no driange noted at this time. Vital Signs: 10:43 BP 137 / 70; Pulse 80; Resp 16; Temp 97.2(O); Pulse Ox 100% on R/A; Weight 121.56 kg lr2 (R); Height 6 ft. 2 in. (187.96 cm) (R); Pain 0/10; 10:43 Body Mass Index 34.41 (121.56 kg, 187.96 cm) lr2 Vitals: 10:43 Log In Time: January 04, 2017 at 10:41. lr2 ED Course: 10:42 Patient visited by Keisha Weber. lr2 10:42 Patient moved to Waiting lr2 10:45 NO PRIMARY PHYSICIAN, . is Private Physician. lr2 10:45 Patient moved to Pre RCE lr2 10:49 Triage Initiated kcs 10:56 Patient moved to Triage 3 kcs 10:58 Stefanie Naranjo PA-C is PHCP. ef1 10:58 Maria Del Carmen King MD is Attending Physician. ef1 11:08 Patient visited by Stefanie Naranjo PA-C. ef1 11:43 Patient visited by Stefanie Naranjo PA-C. ef1 11:45 [facility] Payment Agreement was scanned into [employer] and attached to record. mm15 11:46 Viral Culture - Most Extremities Sent. srm 11:48 The patient / caregiver is instructed regarding the plan of care and ED course. Patient srm has correct armband on for positive identification. 11:49 Patient visited by Essie Zamora, RN. [facility] 11:51 [facility] is Referral Physician. ef1 11:56 Patient moved to TR8 ms18 11:56 No IV's were initiated during this patient's visit. No procedures done that require srm assistance. 13:30 T-Sheet-- Draft Copy was scanned into [employer]HAPP and attached to record. gb Order Results: Lab Order: Viral Culture - Most Extremities; SPEC'M 01/04/17 11:47 Test: VIRAL CULTURE; Value: VIRAL CULTURE Positive for Herpes Simplex Virus Type 2; Abnormal: Abnormal; Status: F Test: VIRAL CULTURE; Value: Comments:; Status: F Test Note: ; Testing performed at reference lab . Report copy to follow on a separate form. 01/12/17 REF LAB#:[id number] Outcome: 11:51 Discharge ordered by Provider. ef1 11:56 Discharge Assessment: Patient awake, alert and oriented x 3. No cognitive and/or srm functional deficits noted. Patient verbalized understanding of disposition instructions. patient administered narcotics - no. The following High Risk Discharge criteria are identified: None. Discharged to home ambulatory. Condition: good Condition: stable. Discharge instructions given to patient, Instructed on discharge instructions, follow up and referral plans. medication usage, Demonstrated understanding of instructions, medications, Pt was receptive of discharge instructions/ teaching. Prescriptions given X 3. No special radiology studies were completed. Property sent home with patient. 11:57 Patient left the ED. [facility] Addendum: 01/13/2017 10:22 Narrative: Viral culture results reviewed with Dr. Myeer and she reports patient and kcs provider aware. Signatures: Kerry Mcadams RN RN kcs Essie Zamora, RN RN srm Edith Dobbins, Reg Reg gb Stefanie Naranjo, PADuniaC PA-C ef1 Amanda Tineo mm15 Evette Carmona RN RN ms18 Keisha Weber lr2 Corrections: (The following items were deleted from the chart) 01/04 10:45 10:43 Pulse 80bpm; Resp 16bpm; Pulse Ox 100% RA; Temp 97.2F Oral; 121.56 kg Reported; lr2 Height 6 ft. 2 in. Reported; BMI: 34.4; Pain 0/10; lr2 Chart Complete MTDD
--- NOTE | 2017-01-13 10:27 | EDDOCDS ---
Physician Documentation [facility] Name: Colt Tellez Age: 21 yrs Sex: Male : 1995 Arrival Date: 01/04/2017 Time: 10:41 Bed TR8 Private MD: NO PRIMARY PHYSICIAN, . Disposition: 01/04/17 11:51 Discharged to Home/Self Care. 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 - Condition is Stable. - Discharge Instructions: Herpes Labialis. - Prescriptions for Ibuprofen 800 mg Oral Tablet - take 1 tablet by ORAL route every 8 hours As needed take with food; 30 tablet. Valtrex 1 g Oral Tablet - take 2 tablet by ORAL route every 12 hours for 1 day; 4 tablet. Bactrim DS 800- 160 mg Oral Tablet - take 2 tablet by ORAL route every 12 hours for 7 days; 28 tablet. - Medication Reconciliation, Referral List Call for Appointment, Local Pharmacy Hours form. - [facility] ; When: 1 - 2 days; Reason: Recheck today's complaints, Continuance of care. Follow up: Emergency Department; Reason: Worsening of conditions. - Problem is new. - Symptoms have improved. Historical: - Allergies: No known drug Allergies; - Home Meds: 1. Bactrim DS 800-160 mg Oral tab 1 tab every 12 hours 2. ibuprofen 200 mg oral tab 2 tabs as needed (Last dose: 01/04/2017 07:00) - PMHx: ADHD; Sciatica; - PSHx: Tonsillectomy; Adenoidectomy; - Social history: Smoking status: Patient states was never smoker of tobacco. No barriers to communication noted, The patient speaks fluent Frisian. - Family history: Not pertinent. - : The pt / caregiver states he / she is not on anticoagulants. Home medication list is obtained from the patient, [employer] import data. - Exposure Risk Screening:: None identified. Vital Signs: 01/04 10:43 BP 137 / 70; Pulse 80; Resp 16; Temp 97.2(O); Pulse Ox 100% on R/A; Weight 121.56 kg / lr2 267.99 lbs (R); Height 6 ft. 2 in. (187.96 cm) (R); Pain 0/10; 10:43 Body Mass Index 34.41 (121.56 kg, 187.96 cm) lr2 MDM: 11:38 Financial registration complete. mm15 11:40 Viral Culture - Most Extremities Ordered. EDMS 11:45 [facility] Payment Agreement was scanned into [employer] and attached to record. mm15 13:30 T-Sheet-- Draft Copy was scanned into [employer] and attached to record. gb Signatures: Dispatcher [employer] Kerry Gross RN RN [facility] Essie Zamora RN RN srm Edith Dobbins, Reg Reg gb Stefanie Naranjo, PA-C PA-C ef1 Amanda Tineo mm15 The chart was reviewed and I authenticate all verbal orders and agree with the evaluation and treatment provided.Corrections: (The following items were deleted from the chart) 11:46 11:39 Misc. Nursing Order ordered. ef1 srm Attachments: 11:45 [facility] Payment Agreement mm15 13:30 T-Sheet-- Draft Copy gb Chart Complete MTDD
--- NOTE | 2017-01-13 10:28 | EDDOCDS ---
Physician Documentation [facility] Name: Colt Tellez Age: 21 yrs Sex: Male : 1995 Arrival Date: 01/04/2017 Time: 10:41 Bed TR8 Private MD: NO PRIMARY PHYSICIAN, . Disposition: 01/04/17 11:51 Discharged to Home/Self Care. 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 - Condition is Stable. - Discharge Instructions: Herpes Labialis. - Prescriptions for Ibuprofen 800 mg Oral Tablet - take 1 tablet by ORAL route every 8 hours As needed take with food; 30 tablet. Valtrex 1 g Oral Tablet - take 2 tablet by ORAL route every 12 hours for 1 day; 4 tablet. Bactrim DS 800- 160 mg Oral Tablet - take 2 tablet by ORAL route every 12 hours for 7 days; 28 tablet. - Medication Reconciliation, Referral List Call for Appointment, Local Pharmacy Hours form. - [facility] ; When: 1 - 2 days; Reason: Recheck today's complaints, Continuance of care. Follow up: Emergency Department; Reason: Worsening of conditions. - Problem is new. - Symptoms have improved. Historical: - Allergies: No known drug Allergies; - Home Meds: 1. Bactrim DS 800-160 mg Oral tab 1 tab every 12 hours 2. ibuprofen 200 mg oral tab 2 tabs as needed (Last dose: 01/04/2017 07:00) - PMHx: ADHD; Sciatica; - PSHx: Tonsillectomy; Adenoidectomy; - Social history: Smoking status: Patient states was never smoker of tobacco. No barriers to communication noted, The patient speaks fluent Yi. - Family history: Not pertinent. - : The pt / caregiver states he / she is not on anticoagulants. Home medication list is obtained from the patient, [employer] import data. - Exposure Risk Screening:: None identified. Vital Signs: 01/04 10:43 BP 137 / 70; Pulse 80; Resp 16; Temp 97.2(O); Pulse Ox 100% on R/A; Weight 121.56 kg / lr2 267.99 lbs (R); Height 6 ft. 2 in. (187.96 cm) (R); Pain 0/10; 10:43 Body Mass Index 34.41 (121.56 kg, 187.96 cm) lr2 MDM: 11:38 Financial registration complete. mm15 11:40 Viral Culture - Most Extremities Ordered. EDMS 11:45 [facility] Payment Agreement was scanned into [employer] and attached to record. mm15 13:30 T-Sheet-- Draft Copy was scanned into [employer] and attached to record. gb Signatures: Dispatcher [employer] Kerry Gross RN RN [facility] Essie Zamora RN RN srm Edith Dobbins, Reg Reg gb Stefanie Naranjo, PA-C PA-C ef1 Amanda Tineo mm15 The chart was reviewed and I authenticate all verbal orders and agree with the evaluation and treatment provided.Corrections: (The following items were deleted from the chart) 11:46 11:39 Misc. Nursing Order ordered. ef1 srm Attachments: 11:45 [facility] Payment Agreement mm15 13:30 T-Sheet-- Draft Copy gb Chart Complete MTDD
== END 2017-01-04 11:57 | disposition home or self-care (01) ==
LOC: M ED 10:41
DX: Z76.0 Encounter for issue of repeat prescription (principal); B00.9 Herpesviral infection, unspecified; L08.9 Local infection of the skin and subcutaneous tissue, unspecified; F90.9 Attention-deficit hyperactivity disorder, unspecified type; M54.30 Sciatica, unspecified side